=== PATIENT | female | born 1975 | race Caucasian/White ===

== ENCOUNTER 2020-07-03 14:13 | Emergency (ER) | payer BC ==
[~2020-07-03] VITALS: Ht 165.1 cm; Wt 55.0 kg
[2020-07-03 14:49] VITALS: BP 114/75
[2020-07-03 15:03] LABS: CHLORIDE 106 mEq/L (98-107)
== END 2020-07-03 16:00 | disposition home or self-care (01) ==
LOC: ER 14:13
DX: R55 Syncope and collapse (principal)
CPT/HCPCS: 36415; 80048; 93005; 99284